=== PATIENT | female | born 1975 | race African-American/Black ===

== ENCOUNTER 2021-11-16 04:09 | Inpatient (IN) | payer OTHER ==
[2021-11-14 13:50] VITALS: BMI 45.4
[2021-11-16] MEDS ORDERED: ceFAZolin SODIUM 1 GM VIAL ONE ×5 (06:22→17:05)
[2021-11-16] MEDS ORDERED: CEFAZOLIN 2 GM in DEXTROSE 5%-WATER - 100 ML IVPB ONE (06:30)
[2021-11-16] MEDS ORDERED: PHENAZOPYRIDINE HCL 100 MG TABLET (FP) PO ONE (06:30)
[2021-11-16] MEDS ORDERED: DEXAMETHASONE SOD PHOSPHATE 4 MG/1 ML VIAL ONE ×2 (07:11→07:15)
[2021-11-16] MEDS ORDERED: ROCURONIUM BROMIDE 50 MG/5 ML SYRINGE ONE (07:11)
[2021-11-16] MEDS ORDERED: KETOROLAC TROMETHAMINE 30 MG/1 ML VIAL ONE ×2 (07:11→07:15)
[2021-11-16] MEDS ORDERED: MIDAZOLAM HCL 2 MG/2 ML SINGLE DOSE VIAL ONE ×2 (07:11)
[2021-11-16] MEDS ORDERED: PROPOFOL 20 ML ONE ×2 (07:11)
[2021-11-16] MEDS ORDERED: LIDOCAINE HCL/PF 2% SDV 5ML VIAL ONE ×2 (07:11→07:15)
[2021-11-16] MEDS ORDERED: SUCCINYLCHOLINE CHLORIDE 200 MG/10 ML SYRINGE ONE (07:11)
[2021-11-16] MEDS ORDERED: SODIUM CHLORIDE 0.9% P/F 10 ML VIAL IJ ONE (07:15)
[2021-11-16] MEDS ORDERED: BUPIVACAINE HCL/PF 0.25% (2.5MG/ML) 10 ML VIAL ONE ×2 (07:20→07:46)
[2021-11-16] MEDS ORDERED: BUPIVACAINE LIPOSOME/PF (EXPAREL) 266 MG/20 ML VIAL ONE ×2 (07:20→07:45)
[2021-11-16] MEDS ORDERED: TRANEXAMIC ACID 1000 MG/10 ML VIAL IVPUSH ONE (08:09)
[2021-11-16] MEDS ORDERED: ACETAMINOPHEN 1000 MG/100 ML BAG IVPB ONE (08:09)
[2021-11-16] MEDS ORDERED: HYDROmorphone HCl 2 MG/ML VIAL ONE (08:16)
[2021-11-16] MEDS ORDERED: ceFAZolin SODIUM 1 GM VIAL IVPB ONE (08:28)
[2021-11-16] MEDS ORDERED: CLINDAMYCIN 900 MG PREMIX BAG IVPB ONE (08:40)
[2021-11-16] MEDS ORDERED: GLYCOPYRROLATE 0.2 MG/1 ML VIAL ONE ×2 (09:06→09:24)
[2021-11-16] MEDS ORDERED: NEOSTIGMINE METHYLSULFATE 0.5 MG/ML - 10 ML MDV ONE (09:06)
[2021-11-16] MEDS ORDERED: LIDOCAINE HCL 2% JELLY (5 ML/TUBE) ONE (09:21)
[2021-11-16] MEDS ORDERED: CLINDAMYCIN 900 MG PREMIX IVPB 900 MG/50 ML BAG IVPB ONE (10:00)
[2021-11-16] MEDS ORDERED: ONDANSETRON 4 MG/2 ML VIAL IVPUSH PRN ×2 (10:16→10:17)
[2021-11-16] MEDS ORDERED: DOCUSATE SODIUM 100 MG CAPSULE (FP) PO PRN (10:16)
[2021-11-16] MEDS ORDERED: BISACODYL 5 MG TABLET.DR (FP) PO PRN (10:16)
[2021-11-16] MEDS ORDERED: SIMETHICONE 80 MG TAB.CHEW (FP) PO PRN (10:16)
[2021-11-16] MEDS ORDERED: HYDROmorphone *PCA* 10MG/50ML DISP.SYRIN PCA SCH (10:30)
[2021-11-16] MEDS ORDERED: ZOLPIDEM TARTRATE 5 MG TABLET PO PRN (10:32)
[2021-11-16] MEDS: LACTATED RINGERS SOLUTION 1,000 ML IV SCH (13:00)
[2021-11-16] MEDS ORDERED: ACETAMINOPHEN 325 MG TABLET (FP) PO PRN (16:00)
[2021-11-16] MEDS ORDERED: ACETAMINOPHEN 325 MG TABLET (FP) PO SCH (16:00)
[2021-11-16] MEDS ORDERED: IBUPROFEN 800 MG/8 ML IJ IVPB PRN (16:00)
[2021-11-16] MEDS ORDERED: ceFAZolin 2 GRAM PREMIX BAG IVPB SCH (16:00)
[2021-11-16] MEDS: CEFAZOLIN SODIUM 2 GM in DEXTROSE 5%-WATER 100 ML IVPB SCH (17:00)
[2021-11-16 17:37] LABS: INR 1.11 (0.83-1.09); PROTHROMBIN TIME (PATIENT) 12.8 SEC (9.7-13.0)
[2021-11-16 17:39] LABS: ACTIVATED PTT 28.9 SECONDS (25.2-36.5)
[2021-11-16 17:44] LABS: CALCIUM 8.2 mg/dL (8.5-10.1)
[2021-11-16 17:45] LABS: BLOOD UREA NITROGEN 6.9 mg/dL (7-18)
[2021-11-16 17:48] LABS: CREATININE 0.7 mg/dL (0.55-1.3)
[2021-11-16 17:57] LABS: HEMATOCRIT 29.5 % (32.4-45.2); HEMOGLOBIN 8.5 GM/dL (10.7-15.3); MCHC 28.7 g/dl (32.0-36.0); MEAN CELL VOLUME 65.3 fl (80-96); PLATELET COUNT 402 10^3/uL (134-434); RBC 4.52 M/mm3 (3.60-5.2); RDW 19.6 % (11.6-15.6); WHITE BLOOD COUNT 13.8 K/mm3 (4.0-10.0)
[2021-11-16] MEDS ORDERED: IBUPROFEN 800 MG/8 ML IJ IVPB SCH (18:00)
[2021-11-16 18:02] LABS: MCH 18.8 pg (25.7-33.7)
[2021-11-17] MEDS: CEFAZOLIN SODIUM 2 GM in DEXTROSE 5%-WATER 100 ML IVPB SCH (00:58)
[2021-11-17 07:24] LABS: HEMATOCRIT 25.7 % (32.4-45.2); HEMOGLOBIN 7.6 GM/dL (10.7-15.3); MCHC 29.6 g/dl (32.0-36.0); MEAN CELL VOLUME 64.7 fl (80-96); MEAN PLT VOLUME 8.8 fl (7.5-11.1); PLATELET COUNT 374 10^3/uL (134-434); RBC 3.98 M/mm3 (3.60-5.2); RDW 19.3 % (11.6-15.6); WHITE BLOOD COUNT 9.2 K/mm3 (4.0-10.0)
[2021-11-17 07:25] LABS: MCH 19.2 pg (25.7-33.7)
[2021-11-17 07:39] LABS: CALCIUM 8.4 mg/dL (8.5-10.1)
[2021-11-17 07:40] LABS: BLOOD UREA NITROGEN 7.4 mg/dL (7-18)
[2021-11-17 07:43] LABS: CREATININE 0.6 mg/dL (0.55-1.3)
[2021-11-17] MEDS: ENOXAPARIN NA (PORCINE) 40 MG/0.4 ML DISP.SYRIN SQ SCH (09:15)
[2021-11-17] MEDS ORDERED: ENOXAPARIN NA (PORCINE) 40 MG/0.4 ML DISP.SYRIN SQ SCH (10:00)
[2021-11-17] MEDS: LACTATED RINGERS SOLUTION 1,000 ML IV SCH (10:42)
[2021-11-17 16:35] VITALS: RESP 18; TEMP 98.4
[2021-11-18 01:56] VITALS: PULSE 70
[2021-11-18 06:27] VITALS: BP 130/75
[2021-11-18] MEDS: ENOXAPARIN NA (PORCINE) 40 MG/0.4 ML DISP.SYRIN SQ SCH (09:08)
== END 2021-11-18 14:00 | disposition home or self-care (01) | DRG 519 ==
LOC: J2C 04:09 → J4W 17:40
PROVIDERS: ADMIT Obstetrics & Gynecology; ATTEND Obstetrics & Gynecology
PROC: 0UT70ZZ Resection of Bilateral Fallopian Tubes, Open Approach (ICD-10-PCS; 2021-11-16)
PROC: 0UB20ZZ Excision of Bilateral Ovaries, Open Approach (ICD-10-PCS; 2021-11-16)
PROC: 0UT90ZZ Resection of Uterus, Open Approach (ICD-10-PCS; principal; 2021-11-16 07:30)
DX: D25.1 Intramural leiomyoma of uterus (principal); D25.0 Submucous leiomyoma of uterus; I44.1 Atrioventricular block, second degree; I97.89 Other postprocedural complications and disorders of the circulatory system, not elsewhere classified; Z68.42 Body mass index [BMI] 45.0-49.9, adult; E66.01 Morbid (severe) obesity due to excess calories; Y83.9 Surgical procedure, unspecified as the cause of abnormal reaction of the patient, or of later complication, without mention of misadventure at the time of the procedure
CPT/HCPCS: 36415; 80048; 81025; 84443; 84484; 85027; 85610; 85730; 86850; 86900; 86901; 86922; 88302-TC; 88305-TC; 88307-TC; 88341-TC; 93306-TC; 94760; C9803-CS; U0003; U0005